=== PATIENT | male | born 1990 | race American Indian/Alaskan Native ===

== ENCOUNTER 2018-11-18 06:13 | Emergency (ER) | payer MEDICAID, OTHER ==
[2018-11-18 06:34] VITALS: BMI 25.4
[2018-11-18 06:46] VITALS: RESP 18; TEMP 97.7
--- NOTE | 2018-11-18 08:12 | ED PDOC ---
Arrival/HPI - General Chief Complaint: Male Genitourinary Time Seen by Provider: 11/18/18 06:56 Historian: Patient - History of Present Illness Narrative History of Present Illness (Text): 11/18/18 08:05 28 year old M w/ h/o depression presenting to the Emergency Room for genital lesions. The patient states he noted evolution of several genital ulcers that appeared near his groin over the last 1 month he describes as pruritic and slightly painful after scratching. He denies penile lesions, discharge, hematuria/dysuria, abdominal or scrotal pain. He reports he engages in coitus with women only and his last unprotected sexual encounter was 2 months ago. He denies taking oral medications, applying any emollients to the area or shaving that area. Time/Duration: > month Symptom Onset: Gradual Symptom Course: Unchanged Activities at Onset: Rest Context: Home Past Medical History - Provider Review Nursing Documentation Reviewed: Yes - Travel History Have you recently traveled outside [place] w/in the past 3 mons?: No - Tetanus Immunization Tetanus Immunization: OTH - Past Medical History Past Medical History: No Previous - Cardiac Hx Cardiac Disorders: No - Pulmonary Hx Respiratory Disorders: No - Neurological Hx Neurological Disorder: No - Psychiatric Hx Depression: Yes Hx Substance Use: Yes - Surgical History Hx Appendectomy: Yes - Suicidal Assessment Feels Threatened In Home Enviroment: No Family/Social History - Physician Review Nursing Documentation Reviewed: Yes Family/Social History: Unknown Family HX Smoking Status: Never Smoked Hx Alcohol Use: Yes Frequency of alcohol use: Socially Hx Substance Use: Yes Substance used: marijuana Allergies/Home Meds Allergies/Adverse Reactions: Allergies shellfish derived Allergy (Verified 10/09/18 11:02) ANAPHYLAXIS Home Medications: Home Meds Medication Instructions Recorded Confirmed No Known Home Med 12/07/12 11/18/18 Review of Systems - Physician Review All systems were reviewed & negative as marked: Yes - Review of Systems Genitourinary Male: absent: Dysuria, Frequency, Hematuria Skin: Rash Physical Exam Vital Signs Reviewed: Yes Vital Signs Temp Pulse Resp BP Pulse Ox 11/18/18 06:35 97.7 F 82 18 142/70 96 Temperature: Afebrile Blood Pressure: Normal Pulse: Regular Respiratory Rate: Normal Appearance: Positive for: Well-Appearing, Non-Toxic, Comfortable Mental Status: Positive for: Alert and Oriented X 3 - Systems Exam Head: Present: Atraumatic, Normocephalic Pupils: Present: PERRL Extroacular Muscles: Present: EOMI Conjunctiva: Present: Normal Mouth: Present: Moist Mucous Membranes Respiratory/Chest: Present: Clear to Auscultation, Good Air Exchange. No: Respiratory Distress Cardiovascular: Present: Regular Rate and Rhythm, Normal S1, S2. No: Murmurs Genitourinary Male: Present: Normal External Genitalia, Circumcised Penis, Lesions (Vesicles noted to suprapubic area. No erythema or purulent discharge noted). No: Penile Discharge Neurological: Present: GCS=15, CN II-XII Intact, Speech Normal Skin: Present: Warm, Dry, Rashes (Vesicular rash noted to groin), Normal Color Psychiatric: Present: Alert, Oriented x 3, Normal Insight, Normal Concentration Medical Decision Making ED Course and Treatment: 11/18/18 08:19 Impression 28 year old M presenting to the [facility] for genital lesions Differential Diagnoses Include But Are Not Limited To: --Chlamydia --Genital Herpes --Contact Dermatitis Plan --GC Urine --Urinalysis Progress Notes: 11/18/18 08:32 UA shows no evidence of esterase or nitrites within the urine - Lab Interpretations Lab Results: Lab Results 11/18/18 07:55: Urine Color Yellow, Urine Appearance Clear, Urine pH 6.0, Ur Specific [place] >= 1.030, Urine Protein Trace H, Urine Glucose (UA) Negative, Urine Ketones Negative, Urine Blood Negative, Urine Nitrate Negative, Urine Bilirubin Negative, Urine Urobilinogen 0.2, Ur Leukocyte Esterase Negative, [place] ne RBC 0 - 2, Urine WBC 1 - 3, Ur Epithelial Cells None, Urine Bacteria Mod I have reviewed the lab results: Yes Disposition/Present on Arrival - Present on Arrival Any Indicators Present on Arrival: No History of DVT/PE: No History of Uncontrolled Diabetes: No Urinary Catheter: No History of Decub. Ulcer: No History Surgical Site Infection Following: None - Disposition Have Diagnosis and Disposition been Completed?: Yes Diagnosis: Groin rash Disposition: HOME/ ROUTINE Disposition Time: 08:58 Patient Plan: Discharge Patient Problems: Current Active Problems Problem Status Onset Groin rash Acute Condition: STABLE Discharge Instructions (ExitCare): Skin Rash (DC), Fungal Skin Rash (DC) Print Language: [place] Additional Instructions: Please reserve a visit with your PCP and request the following STD testing --Herpes 1 & 2 --Syphillis --HIV Please monitor lesions for any discharge, increase in number or worsening pain Referrals: Shantell Charlton MD [Family Provider] - Follow up with primary Forms: [facility] ([place]), SCHOOL NOTE
[2018-11-18 08:25] LABS: URINE APPEARANCE CLEAR (CLEAR); URINE BILIRUBIN NEGATIVE (NEGATIVE); URINE BLOOD NEGATIVE (NEGATIVE); URINE COLOR YELLOW (YELLOW); URINE GLUCOSE (UA) NEGATIVE (NEGATIVE); URINE LEUKOCYTE ESTERASE NEGATIVE Leu/uL (NEGATIVE); URINE PROTEIN TRACE mg/dL (<30 mg/dL); URINE UROBILINOGEN 0.2 E.U./dL (<1 E.U./dL)
[2018-11-18 08:29] LABS: URINE RBC 0 - 2 /hpf (0-2)
[2018-11-18 08:30] LABS: URINE BACTERIA MOD /hpf
[2018-11-18 09:04] VITALS: BP 140/78; PULSE 74; O2SAT 100
== END 2018-11-18 09:25 | disposition home or self-care (01) ==
LOC: ED 06:13
DX: R21 Rash and other nonspecific skin eruption (principal)